=== PATIENT | female | born 1960 | race Caucasian/White ===

== ENCOUNTER 2019-05-23 10:42 | Inpatient (IN) ==
[2019-05-23 11:24] LABS: Bilirubin,Urine Negative (Negative); Blood,Urine Negative (Negative); Clarity,Urine Slightly Cloudy (Clear); Color,Urine Yellow (Yellow); Glucose,Urine (UA) Normal (Normal); Ketones,Urine Negative (Negative); Leukocyte Esterase,Urine Negative (Negative); Nitrite,Urine Negative (Negative); PH,Urine 5.5 pH Units (5.0-8.0); Protein,Urine 100 mg/dL (Neg-Trace); Specific Gravity,Urine 1.025 (1.010-1.025); Urobilinogen,Urine Normal (Normal)
[2019-05-23 11:30] LABS: Bacteria,Urine Moderate per hpf (None-Few); Mucus,Urine Few per lpf (Few); RBC,Urine 0-3 per hpf (0-3); Squamous Epithelial Cell,Urine Many per lpf (None-Few); WBC,Urine 0-3 per hpf (0-3); Yeast,Urine Few per hpf (None Seen)
[2019-05-23 11:44] LABS: Amphetamine Screen,Urine Negative ng/mL (Cutoff=1000); Barbiturate Screen,Urine Negative ng/mL (Cutoff=200); Benzodiazepines Screen,Urine Negative ng/mL (Cutoff=200); Cannabinoid Screen,Urine Negative ng/mL (Cutoff = 50); Cocaine Screen,Urine Negative ng/mL (Cutoff= 300); Opiate Screen,Urine Negative ng/mL (Cutoff=300); Phencyclidine Screen,Urine Negative ng/mL (Cutoff=25)
[2019-05-23 11:44] LABS: Basophils # 0.1 K/mcL (0.0-0.2); Basophils % 0.5 %; Eosinophils # 0.1 K/mcL (0.0-0.6); Eosinophils % 0.8 %; Hematocrit 44.4 % (35.3-44.9); Hemoglobin 14.3 g/dL (11.5-15.4); Immature Granulocytes % 0.6 % (0-4); Lymphocytes # 1.9 K/mcL (0.6-4.6); Mean Corpuscular HGB Conc 32.2 g/dL (31.6-35.5); Mean Corpuscular Hemoglobin 31.8 pg (28.0-33.3); Mean Corpuscular Volume 98.9 fL (83.0-100.0); Mean Platelet Volume 10.3 fL (9.4-12.4); Monocytes # 1.1 K/mcL (0.0-1.3); Monocytes % 7.6 %; Neutrophils # 11.2 K/mcL (1.6-8.9); Nucleated Red Blood Cells 0.1 /100 WBC (0); Platelet Count 189 K/mcL (140-400); Red Blood Count 4.49 M/mcL (3.82-4.97); Red Cell Distribution Width 13.1 % (11.5-14.5); Segmented Neutrophils % 77.5 %; White Blood Count 14.4 K/mcL (4.3-11.1)
[2019-05-23 11:52] LABS: Prothrombin Time 11.9 Seconds (9.4-12.1)
[2019-05-23 11:56] LABS: VBG HCO3 31 mEq/L (21-27); VBG PCO2 74 mmHg (41-51); VBG PH 7.24 pH Units (7.32-7.42); VBG PO2 67 mmHg (25-50)
[2019-05-23 12:06] LABS: Alanine Aminotransferase 17 Units/L (7-52); Albumin 3.8 g/dL (3.5-5.7); Albumin/Globulin Ratio 1.3 (1.1-2.2); Alkaline Phosphatase 93 Units/L (34-104); Aspartate Amino Transferase 15 Units/L (13-39); BUN/Creatinine Ratio 13 (6-26); Bilirubin,Direct 0.1 mg/dL (0.0-0.2); Bilirubin,Indirect 0.3 mg/dL (0.0-1.0); Bilirubin,Total 0.4 mg/dL (0.3-1.0); Blood Urea Nitrogen 18 mg/dL (8-23); Carbon Dioxide 34 mEq/L (23-29); Chloride 98 mEq/L (98-107); Ethanol < 10 mg/dL (Less than 10); Globulin 2.9 g/dL (2.4-3.5); Glucose 242 mg/dL (70-105); Osmolality,Calculated 296 (280-300); Potassium 4.3 mEq/L (3.5-5.1); Sodium 138 mEq/L (136-145); Total Protein 6.7 g/dL (6.4-8.9); eGFR For African Americans 46 (> 60); eGFR For Non-African Americans 38 (> 60)
[2019-05-23 13:01] LABS: ABG Base Excess 4 mEq/L (-2 to 3); ABG HCO3 35 mEq/L (21-27); ABG Oxygen Saturation 89 % (95-98); ABG PCO2 82 mmHg (35-45); ABG PH 7.23 pH Units (7.32-7.45); ABG PO2 69 mmHg (85-104); ABG TCO2 37 mEq/L (20-26)
[2019-05-23] MEDS ORDERED: Mag Hydrox/Al Hydrox/Simeth 30 ML UDC PO PRN (13:51)
[2019-05-23] MEDS ORDERED: Naloxone 0.4 MG/ML INJ IVP PRN (13:51)
[2019-05-23] MEDS ORDERED: Acetaminophen 325 MG TABLET PO PRN (13:51)
[2019-05-23] MEDS ORDERED: MOM Conc 10 ML UD.LIQ PO PRN (13:51)
[2019-05-23] MEDS ORDERED: Ondansetron 4 MG/2 ML VIAL IVP PRN (13:51)
[2019-05-23] MEDS ORDERED: 0.9 % Sodium Chloride 1,000 ML IVC SCH (14:00)
[2019-05-23 14:52] LABS: ABG Base Excess 5 mEq/L (-2 to 3); ABG HCO3 35 mEq/L (21-27); ABG Oxygen Saturation 86 % (95-98); ABG PCO2 73 mmHg (35-45); ABG PH 7.28 pH Units (7.32-7.45); ABG PO2 60 mmHg (85-104); ABG TCO2 37 mEq/L (20-26)
[2019-05-23] MEDS ORDERED: Isovue-370 500 ML BOTTLE IVP ONE (19:20)
[2019-05-23] MEDS ORDERED: *HR* Dextrose 50 % in Water (Vial) 50 ML VIAL IVP PRN (19:36)
[2019-05-23] MEDS ORDERED: D5% in Water 1,000 ML IVC PRN (19:36)
[2019-05-23] MEDS ORDERED: Dextrose Gel 15 GM/37.5 ML TUBE PO PRN ×2 (19:36)
[2019-05-23] MEDS ORDERED: Methocarbamol 750 MG TABLET PO PRN (20:15)
[2019-05-23] MEDS: BuPROPion SR (12 HR) 100 MG TABLET PO SCH (22:05)
[2019-05-23] MEDS: Gabapentin 400 MG CAPSULE PO SCH (22:06)
[2019-05-23] MEDS: lamoTRIgine 100 MG TABLET PO SCH (22:06)
[2019-05-23] MEDS: Famotidine 20 MG TABLET PO SCH (22:06)
[2019-05-23] MEDS: *HR* OxyCODONE/APAP 10/325 TABLET PO PRN (22:06)
[2019-05-23] MEDS: Insulin LISPRO 300 UNITS/3 ML VIAL SQ SCH (22:07)
[2019-05-23] MEDS: Methocarbamol 500 MG TABLET PO PRN (22:21)
[2019-05-24 05:32] LABS: Basophils # 0.1 K/mcL (0.0-0.2); Basophils % 0.5 %; Eosinophils # 0.1 K/mcL (0.0-0.6); Eosinophils % 1.5 %; Hematocrit 41.4 % (35.3-44.9); Hemoglobin 13.1 g/dL (11.5-15.4); Immature Granulocytes % 0.6 % (0-4); Lymphocytes % 32.2 %; Mean Corpuscular HGB Conc 31.6 g/dL (31.6-35.5); Mean Corpuscular Hemoglobin 31.6 pg (28.0-33.3); Mean Platelet Volume 10.1 fL (9.4-12.4); Monocytes # 0.8 K/mcL (0.0-1.3); Monocytes % 8.6 %; Neutrophils # 5.3 K/mcL (1.6-8.9); Nucleated Red Blood Cells 0.2 /100 WBC (0); Platelet Count 175 K/mcL (140-400); Red Blood Count 4.14 M/mcL (3.82-4.97); Red Cell Distribution Width 13.2 % (11.5-14.5); Segmented Neutrophils % 56.6 %; White Blood Count 9.3 K/mcL (4.3-11.1)
[2019-05-24 06:48] LABS: Troponin I < 0.03 ng/mL (< 0.04)
[2019-05-24 07:08] LABS: Alanine Aminotransferase 13 Units/L (7-52); Albumin 3.5 g/dL (3.5-5.7); Albumin/Globulin Ratio 1.3 (1.1-2.2); Alkaline Phosphatase 95 Units/L (34-104); Aspartate Amino Transferase 12 Units/L (13-39); BUN/Creatinine Ratio 12 (6-26); Bilirubin,Total 0.4 mg/dL (0.3-1.0); Blood Urea Nitrogen 15 mg/dL (8-23); Calcium 8.9 mg/dL (8.6-10.3); Carbon Dioxide 36 mEq/L (23-29); Chloride 102 mEq/L (98-107); Cholesterol 159 mg/dL (< 200); Globulin 2.7 g/dL (2.4-3.5); Glucose 150 mg/dL (70-105); HDL Cholesterol 32 mg/dL (40-59); LDL Cholesterol,Calculated 86 mg/dL (0-99); Osmolality,Calculated 300 (280-300); Potassium 3.9 mEq/L (3.5-5.1); Sodium 143 mEq/L (136-145); Total Protein 6.2 g/dL (6.4-8.9); Triglycerides 205 mg/dL (< 150); eGFR For African Americans 54 (> 60); eGFR For Non-African Americans 44 (> 60)
[2019-05-24] MEDS: Insulin LISPRO 300 UNITS/3 ML VIAL SQ SCH ×3 (08:24→17:09)
[2019-05-24] MEDS: Gabapentin 400 MG CAPSULE PO SCH ×3 (08:30→20:05)
[2019-05-24] MEDS: BuPROPion SR (12 HR) 100 MG TABLET PO SCH ×2 (08:30→20:05)
[2019-05-24] MEDS: lamoTRIgine 100 MG TABLET PO SCH ×2 (08:33→20:06)
[2019-05-24 10:20] LABS: Estimated Average Glucose 177 mg/dl
[2019-05-24 10:30] LABS: ABG Base Excess 5 mEq/L (-2 to 3); ABG HCO3 35 mEq/L (21-27); ABG Oxygen Saturation 90 % (95-98); ABG PCO2 79 mmHg (35-45); ABG PH 7.25 pH Units (7.32-7.45); ABG PO2 70 mmHg (85-104); ABG TCO2 37 mEq/L (20-26)
[2019-05-24] MEDS: Methocarbamol 500 MG TABLET PO PRN (19:38)
[2019-05-24] MEDS: Famotidine 20 MG TABLET PO SCH (20:06)
[2019-05-24] MEDS: *HR* OxyCODONE/APAP 10/325 TABLET PO PRN (20:34)
[2019-05-25] MEDS: Insulin LISPRO 300 UNITS/3 ML VIAL SQ SCH ×3 (07:57→16:44)
[2019-05-25] MEDS: BuPROPion SR (12 HR) 100 MG TABLET PO SCH ×2 (07:58→20:18)
[2019-05-25] MEDS: lamoTRIgine 100 MG TABLET PO SCH ×2 (07:58→20:19)
[2019-05-25] MEDS: Gabapentin 400 MG CAPSULE PO SCH ×3 (07:58→20:18)
[2019-05-25] MEDS: Methocarbamol 500 MG TABLET PO PRN (16:42)
[2019-05-25] MEDS: Famotidine 20 MG TABLET PO SCH (20:18)
[2019-05-25] MEDS: *HR* OxyCODONE/APAP 10/325 TABLET PO PRN (20:18)
[2019-05-26] MEDS: Insulin LISPRO 300 UNITS/3 ML VIAL SQ SCH (08:28)
[2019-05-26] MEDS: BuPROPion SR (12 HR) 100 MG TABLET PO SCH (08:30)
[2019-05-26] MEDS: lamoTRIgine 100 MG TABLET PO SCH (08:31)
[2019-05-26] MEDS: Gabapentin 400 MG CAPSULE PO SCH (08:31)
[2019-05-26] MEDS ORDERED: Aspirin Enteric Coated 81 MG Tablet PO SCH (09:00)
[2019-05-26 10:54] VITALS: BP 154/89
== END 2019-05-26 13:30 | disposition home or self-care (01) | DRG 189 ==
LOC: INPPIK 10:42 → EMEROOPIK 10:42 → INPPIK 18:31
PROVIDERS: ADMIT Family Medicine; ATTEND Family Medicine

== ENCOUNTER 2020-02-19 18:14 | Inpatient (IN) ==
[2020-02-19 18:59] LABS: Bilirubin,Urine Negative (Negative); Blood,Urine Trace-intact (Negative); Clarity,Urine Clear (Clear); Glucose,Urine (UA) Normal (Normal); Ketones,Urine Negative (Negative); Leukocyte Esterase,Urine Small (Negative); Nitrite,Urine Negative (Negative); PH,Urine 5.5 pH Units (5.0-8.0); Protein,Urine Trace mg/dL (Neg-Trace); Urobilinogen,Urine Normal (Normal)
[2020-02-19 19:16] LABS: Basophils % 0.4 %; Eosinophils # 0.2 K/mcL (0.0-0.6); Eosinophils % 1.4 %; Hematocrit 45.7 % (35.3-44.9); Hemoglobin 14.1 g/dL (11.5-15.4); Immature Granulocytes % 0.3 % (0-4); Lymphocytes # 3.1 K/mcL (0.6-4.6); Lymphocytes % 30.1 %; Mean Corpuscular HGB Conc 30.9 g/dL (31.6-35.5); Mean Corpuscular Hemoglobin 31.5 pg (28.0-33.3); Mean Corpuscular Volume 102.2 fL (83.0-100.0); Mean Platelet Volume 10.2 fL (9.4-12.4); Monocytes # 0.8 K/mcL (0.0-1.3); Monocytes % 7.9 %; Neutrophils # 6.3 K/mcL (1.6-8.9); Platelet Count 198 K/mcL (140-400); Red Blood Count 4.47 M/mcL (3.82-4.97); Red Cell Distribution Width 13.8 % (11.5-14.5); Segmented Neutrophils % 59.9 %; White Blood Count 10.4 K/mcL (4.3-11.1)
[2020-02-19 19:16] LABS: Color,Urine Light Yellow (Yellow)
[2020-02-19 19:19] LABS: Bacteria,Urine Few per hpf (None-Few); Squamous Epithelial Cell,Urine Few per hpf (None-Few)
[2020-02-19 19:31] LABS: Prothrombin Time 11.8 Seconds (9.4-12.1)
[2020-02-19 19:36] LABS: Alanine Aminotransferase 10 Units/L (7-52); Albumin 4.1 g/dL (3.5-5.7); Albumin/Globulin Ratio 1.6 (1.1-2.2); Alkaline Phosphatase 89 Units/L (34-104); Aspartate Amino Transferase 14 Units/L (13-39); BUN/Creatinine Ratio 14 (6-26); Bilirubin,Total 0.4 mg/dL (0.3-1.0); Blood Urea Nitrogen 17 mg/dL (8-23); Calcium 9.4 mg/dL (8.6-10.3); Carbon Dioxide 39 mEq/L (23-29); Chloride 98 mEq/L (98-107); Creatine Kinase 134 Units/L (30-223); Globulin 2.6 g/dL (2.4-3.5); Glucose 84 mg/dL (70-105); Magnesium 1.7 mg/dL (1.6-2.6); Osmolality,Calculated 291 (280-300); Potassium 4.3 mEq/L (3.5-5.1); Sodium 140 mEq/L (136-145); Total Protein 6.7 g/dL (6.4-8.9); Troponin I < 0.03 ng/mL (< 0.04); eGFR For African Americans 53 (> 60); eGFR For Non-African Americans 43 (> 60)
[2020-02-19] MEDS ORDERED: cefTRIAXone 2,000 MG in 0.9 % Sodium Chloride Mini Bag 100 ML IVPB ONE (19:41)
[2020-02-19] MEDS ORDERED: 0.9 % Sodium Chloride 1,000 ML IVC SCH (19:45)
[2020-02-19 19:49] LABS: Thyroid Stimulating Hormone 3.471 mcIU/mL (0.340-5.600)
[2020-02-19] MEDS ORDERED: NON-FORMULARY MEDICATION 1 EACH EACH (Oxygen 2 L) NS PRN (23:57)
[2020-02-19] MEDS ORDERED: D5% in Water 1,000 ML IVC PRN (23:57)
[2020-02-19] MEDS ORDERED: Methyl Salicylate/Menthol 57 APPL/57 GM TUBE TP PRN (23:57)
[2020-02-19] MEDS ORDERED: *HR* OxyCODONE/APAP 7.5/325 TABLET PO PRN (23:57)
[2020-02-19] MEDS ORDERED: *HR* Dextrose 50 % in Water (Vial) 50 ML VIAL IVP PRN (23:57)
[2020-02-19] MEDS ORDERED: Naloxone 0.4 MG/ML INJ IVP PRN (23:57)
[2020-02-19] MEDS ORDERED: Dextrose Gel 15 GM/37.5 ML TUBE PO PRN ×2 (23:57)
[2020-02-20] MEDS: methocarbamoL 500 MG TABLET PO SCH ×2 (02:27→08:04)
[2020-02-20] MEDS: 0.9 % Sodium Chloride 1,000 ML IVC SCH ×2 (04:38→13:19)
[2020-02-20] MEDS ORDERED: GlipiZIDE 5 MG TABLET PO SCH (08:00)
[2020-02-20] MEDS: Insulin LISPRO 300 UNITS/3 ML VIAL SQ SCH ×2 (08:04→12:14)
[2020-02-20 08:44] LABS: ABG Base Excess 9 mEq/L (-2 to 3); ABG HCO3 43 mEq/L (21-27); ABG Oxygen Saturation 82 % (95-98); ABG PCO2 108 mmHg (35-45); ABG PO2 61 mmHg (85-104); ABG TCO2 46 mEq/L (20-26)
[2020-02-20] MEDS ORDERED: Ondansetron 4 MG/2 ML VIAL IVP PRN (08:55)
[2020-02-20] MEDS ORDERED: methylPREDNISolone 125 MG/2 ML VIAL IVP ONE (08:59)
[2020-02-20] MEDS ORDERED: cefTRIAXone 2,000 MG in 0.9 % Sodium Chloride Mini Bag 100 ML IVPB SCH (09:00)
[2020-02-20] MEDS ORDERED: Aspirin Enteric Coated 81 MG Tablet PO SCH (09:00)
[2020-02-20] MEDS ORDERED: lisinopriL 10 MG TABLET PO SCH (09:00)
[2020-02-20] MEDS ORDERED: TRINTELLIX 5 MG PO SCH (09:00)
[2020-02-20] MEDS ORDERED: Lurasidone 20 MG TABLET PO SCH (09:00)
[2020-02-20] MEDS ORDERED: lamoTRIgine 100 MG TABLET PO SCH (09:00)
[2020-02-20] MEDS ORDERED: atenoloL 25 MG TABLET PO SCH (09:00)
[2020-02-20] MEDS ORDERED: Ondansetron ODT 4 MG TAB.RAPDIS PO SCH (09:00)
[2020-02-20] MEDS ORDERED: Cyanocobalamin (B-12) 1,000 MCG TABLET PO SCH (09:00)
[2020-02-20 10:10] LABS: ABG Base Excess 8 mEq/L (-2 to 3); ABG HCO3 41 mEq/L (21-27); ABG Oxygen Saturation 86 % (95-98); ABG PCO2 107 mmHg (35-45); ABG PH 7.19 pH Units (7.32-7.45); ABG PO2 67 mmHg (85-104); ABG TCO2 44 mEq/L (20-26); Blood Gas Pressure Support 16 cm H2O
[2020-02-20 10:21] LABS: Basophils % 0.5 %; Eosinophils # 0.1 K/mcL (0.0-0.6); Eosinophils % 1.2 %; Hematocrit 43.4 % (35.3-44.9); Hemoglobin 13.2 g/dL (11.5-15.4); Immature Granulocytes % 0.2 % (0-4); Lymphocytes # 2.7 K/mcL (0.6-4.6); Lymphocytes % 31.4 %; Mean Corpuscular HGB Conc 30.4 g/dL (31.6-35.5); Mean Corpuscular Hemoglobin 31.6 pg (28.0-33.3); Mean Corpuscular Volume 103.8 fL (83.0-100.0); Mean Platelet Volume 10.1 fL (9.4-12.4); Monocytes # 0.9 K/mcL (0.0-1.3); Monocytes % 9.8 %; Platelet Count 168 K/mcL (140-400); Red Blood Count 4.18 M/mcL (3.82-4.97); Segmented Neutrophils % 56.9 %; White Blood Count 8.7 K/mcL (4.3-11.1)
[2020-02-20 10:59] LABS: Calcium 8.9 mg/dL (8.6-10.3); Potassium 4.5 mEq/L (3.5-5.1)
[2020-02-20 11:18] VITALS: BP 112/75
[2020-02-20 12:11] LABS: ABG Base Excess 7 mEq/L (-2 to 3); ABG HCO3 39 mEq/L (21-27); ABG Oxygen Saturation 90 % (95-98); ABG PCO2 93 mmHg (35-45); ABG PH 7.23 pH Units (7.32-7.45); ABG PO2 74 mmHg (85-104); ABG TCO2 42 mEq/L (20-26); Blood Gas Pressure Support 18 cm H2O
[2020-02-20 12:22] LABS: Amphetamine Screen,Urine Negative ng/mL (Cutoff=1000); Barbiturate Screen,Urine Negative ng/mL (Cutoff=200); Benzodiazepines Screen,Urine Negative ng/mL (Cutoff=200); Cannabinoid Screen,Urine Negative ng/mL (Cutoff = 50); Cocaine Screen,Urine Negative ng/mL (Cutoff= 300); Opiate Screen,Urine Negative ng/mL (Cutoff=300); Phencyclidine Screen,Urine Negative ng/mL (Cutoff=25)
[2020-02-20] MEDS ORDERED: MethylPREDNISolone 40 MG/ML VIAL IVP SCH (16:00)
[2020-02-20] MEDS ORDERED: Insulin DETEMIR 100 UNIT/ML X5UNITS SQ SCH (21:00)
[2020-02-20] MEDS ORDERED: Insulin LISPRO 300 UNITS/3 ML VIAL SQ SCH (21:00)
[2020-02-25] MEDS ORDERED: Dulaglutide [Trulicity] 1.5 MG SQ SCH (09:00)
[2020-02-25] MEDS ORDERED: Ergocalciferol (VIT D2) 50,000 UNIT (1.25MG) CAP PO SCH (09:00)
== END 2020-02-20 13:43 | disposition short-term general hospital (02) | DRG 689 ==
LOC: INPPIK 18:14 → EMEROOPIK 18:14 → INPPIK 23:00
PROVIDERS: ADMIT Family Medicine; ATTEND Family Medicine